=== PATIENT | male | born 1970 | race Caucasian/White ===

== ENCOUNTER → 2021-12-27 06:57 | Outpatient (CLI) | payer BC, SELFPAY ==
--- NOTE | ~2021-12-27 | US_ITS ---
EXAMINATION: US carotid duplex BI DATE: 12/27/2021 11:30 INDICATION: Carotid atherosclerosis TECHNIQUE: Grayscale, color Doppler, and pulsed Doppler images of the cervical carotid arteries were obtained. The degree of vessel stenosis is placed in one of the following categories: normal, <50%, 5 0-69%, >=70% but less than near-occlusion, near-occlusion, or total occlusion. Note that percent sten osis relative to normal distal artery lumen diameter is indirectly measured from velocity measurement s as described by Shant, et al. Radiology 2003; 229:340-346. COMPARISON: None. FINDINGS: RIGHT: The right common carotid artery (CCA) peak systolic velocity (PSV) is 81 cm/s. The right internal car otid artery (ICA) PSV is 74 cm/s. The right ICA end-diastolic velocity (EDV) is 33 cm/s. The right IC A/CCA PSV ratio is 0.9. Grayscale and color Doppler images yield an estimate of <50% diameter reducti on from plaque in the ICA. The external carotid artery (ECA) PSV is 70 cm/s. There is antegrade flow in the right vertebral artery. LEFT: The left CCA PSV is 78 cm/s. The left ICA PSV is 91 cm/s. The left ICA EDV is 41 cm/s. The left ICA/C CA PSV ratio is 1.2. Grayscale and color Doppler images yield an estimate of <50% diameter reduction from plaque in the ICA. The ECA PSV is 73 cm/s. There is antegrade flow in the left vertebral artery. IMPRESSION: 1. <50% stenosis in the right internal carotid artery. 2. <50% stenosis in the left internal carotid artery. Reviewed, dictated and finalized at location A.
--- NOTE | ~2021-12-27 | MR_ITS ---
EXAMINATION: MR brain/brain stem wo tessy EXAM DATE: 12/27/2021 07:52 INDICATION: Dizziness, headache, memory loss TECHNIQUE: Magnetic resonance imaging (MRI) of the brain/brain stem obtained without contrast. Linda al T1, axial diffusion, gradient echo (T2*), T1, T2, FLAIR sequences obtained. There is no prior st udy for comparison. FINDINGS: There are no areas of restricted diffusion to suggest acute infarction. There is no acute hemorrhage seen on the T2*, a hemosiderin sensitive sequence. No intraparenchymal brain mass. The ve ntricles are normal in size. There are no extra-axial collections. Flow voids are seen in the cereb ral arteries on the T2-weighted sequences consistent with their expected patency. The orbits are unr emarkable. Soft tissue is unremarkable. IMPRESSION: 1. Unremarkable brain MRI examination. Reviewed, dictated and finalized at location B.
--- NOTE | ~2021-12-27 | MR_ITS ---
EXAMINATION: MR cervical spine wo con EXAM DATE: 12/27/2021 07:52 INDICATION: Severe neck pain. TECHNIQUE: Multi-sequential, multiplanar MR images of the cervical spine were obtained without contra st. Axial T2, axial T2 MERGE sequence. Sagittal T1, T2, T2 fat saturation images also obtained. Th ere is no prior study for comparison. FINDINGS: There is mild disc disease C4-7. The spinal cord signal intensity and intrinsic morphology is normal. Cervicomedullary junction is normal in appearance. The vertebral bodies are aligned in th e AP dimension. There are no suspicious marrow signal abnormalities. Paraspinal soft tissue is unrema rkable. Level by level evaluation: C2-C3: Disc does not extend beyond the endplate margin. Uncovertebral joint arthropathy: Minimal left. Facet joint arthropathy: Minimal bilateral. Neural foraminal stenosis: No stenosis. Central canal stenosis: No stenosis. C3-C4: Disc does not extend beyond the endplate margin. Uncovertebral joint arthropathy: Minimal bilateral. Facet joint arthropathy: Minimal bilateral. Neural foraminal stenosis: No stenosis. Central canal stenosis: No stenosis. C4-C5: There is a minimal diffuse disc bulge. Uncovertebral joint arthropathy: Mild. Facet joint arthropathy: Mild bilateral. Neural foraminal stenosis: No stenosis. Central canal stenosis: No stenosis. C5-C6: There is a mild diffuse disc bulge asymmetric to the right. Uncovertebral joint arthropathy: Moderate to severe right, mild left. Facet joint arthropathy: Mild bilateral. Neural foraminal stenosis: Moderate to severe right, mild left. Central canal stenosis: Mild. C6-C7: Disc does not extend beyond the endplate margin. Uncovertebral joint arthropathy: Mild bilateral. Facet joint arthropathy: Mild bilateral. Neural foraminal stenosis: Mild. Central canal stenosis: No stenosis. C7-T1: Disc does not extend beyond the endplate margin. Uncovertebral joint arthropathy: Mild bilateral. Facet joint arthropathy: Mild bilateral. Neural foraminal stenosis: Mild right. Central canal stenosis: No stenosis. IMPRESSION: 1. C5-6 moderate to severe right neural foraminal stenosis. 2. Otherwise relatively mild cervical spondylosis. Reviewed, dictated and finalized at location B.
== END ==
PROVIDERS: PCP Internal Medicine; Visit Provider Internal Medicine
DX: R51.9 Headache, unspecified (principal); R42 Dizziness and giddiness; I65.23 Occlusion and stenosis of bilateral carotid arteries; M47.892 Other spondylosis, cervical region
CPT/HCPCS: 70551; 72141; 93880

== ENCOUNTER 2022-04-22 08:59 | Outpatient (CLI) | payer BC, SELFPAY ==
--- NOTE | 2022-04-22 09:30 | ECG_ITS ---
Measurements Intervals [place] Rate: 71 P: 23 MS: 142 QRS: -12 QRSD: 81 T: 7 QT: 339 QTc: 370 Interpretive Statements SINUS RHYTHM DELAYED PRECORDIAL R/S TRANSITION INFERIOR INFARCT, AGE INDETERMINATE BASELINE ARTIFACT- I, III, AVR, AVL, AVF, V2 ABNORMAL ECG Electronically Signed On 04-22-2022 10:06:33 CDT by Petar Black D.O.
[2022-04-22 09:59] LABS: Anion Gap 7 mmol/L (8-16); Blood Urea Nitrogen 12 mg/dL (9-20); Calcium 9.5 mg/dL (8.4-10.2); Carbon Dioxide 32 mmol/L (22-30); Chloride 102 mmol/L (98-107); Estimated Glomerular Filt Rate > 60; Glucose 163 mg/dL (65-110); Potassium 4.5 mmol/L (3.4-5.0); Sodium 141 mmol/L (137-145)
== END 2022-04-22 09:00 | disposition home or self-care (01) ==
LOC: ANHSURGERY 09:05
PROVIDERS: Anesthesiology; PCP Physician Assistant Medical; Visit Provider Urology
DX: E78.5 Hyperlipidemia, unspecified (principal); E11.9 Type 2 diabetes mellitus without complications; Z01.818 Encounter for other preprocedural examination; R94.31 Abnormal electrocardiogram [ECG] [EKG]
CPT/HCPCS: 36415; 80048; 93005

== ENCOUNTER 2022-04-24 03:08 | Day surgery (SDC) | payer BC, SELFPAY ==
[2022-04-16 08:50] VITALS: BMI 31.6
--- NOTE | 2022-04-16 08:51 | PC.NURSE ---
Report to the Outpatient Waiting Room, entrance under the green pavilion located off [facility], at time _0830_ on date _[id number]_. OR Time: _1030_. - You and your visitor will be asked a series of questions to screen for COVID 19 for your protection. - Only one visitor is allowed at this time. - The patient visitor is requested to leave or wait in car when not with patient. - A mask is required within the hospital. Patients may have clear liquids (water, carbonated beverages, clear teas, apple juice) until 3 hours prior to surgery with a maximum of 20 ounces. - No food from midnight until time of surgery Take the following medications with a SIP of water the morning of surgery: ___Levothyroxine Medications to discontinue per physician ____Multivitamin and fish oil Date to take last anpm___[id number] Please no make-up, nail macanese, hairspray, perfume, deodorant, or body powder the day of surgery. No jewelry (including any body piercings) or valuables the day of surgery, leave them at home. Please take a shower or bath the night before, or the morning of, surgery with an antibacterial soap. Wear comfortable, loose fitting clothing. - Jewelry must be removed prior to entering the operating room. Rings and piercings that are not removed may be cut off. - The hospital will not accept responsibility for valuables. - Please leave all valuables, including medications, at home the day of surgery. If you are going home after surgery, a licensed wood pile driver operator must drive you home. - NO public transportation without another adult. - We recommend that an adult stay with you for 24 hours following discharge. - We also recommend that you do not drive, make important decision, drink alcoholic beverages, or take any drugs that were not prescribed by your health care provider for at least 24 hours after your discharge time. Follow any additional instructions given to you from your surgeon. If you or anyone in your household have experienced Covid symptoms in the past week, please notify your surgeon or the nurse liaison at the phone number below for possible testing. Telephone instructions given to _Patient___and asked if any additional questions and then verbalized understanding. Patient advised to call surgeon office or pre surgery nurse liaison [phone] if any additional questions.
--- NOTE | 2022-04-23 15:37 | WPDANESEPPF ---
Anes - Initial Pre Proc Eval Procedure: Operation Date: 04/24/22 10:30 Proposed Procedures p Cystoscopy, Left Ureteroscopy, Left Retrograde Pyelogram, Left Stone Extraction, Possible Left Stent Placement, Possible Holmium Laser Lithotripsy - Winston Marroquin MD Date/Time: 04/23/22 15:37 Surgeon: Winston Marroquin MD Pre Op Diagnosis: left kidney calculus Patient Data Age: 52 Gender: M Height: 1.78 m Weight: 100 kg Allergies Allergy/AdvReac Type Severity Reaction Status Date / Time No Known Allergies Allergy Verified 04/24/22 08:27 Home Medications Medication Instructions Recorded Confirmed Type allopurinol 100 mg tablet 100 mg PO DAILY 04/04/22 04/16/22 History fenofibrate 50 mg capsule 50 mg PO DAILY 04/04/22 04/16/22 History levothyroxine 25 mcg capsule 25 mcg PO DAILY 04/04/22 04/16/22 History metformin 500 mg tablet 500 mg PO DAILY 04/04/22 04/16/22 History simvastatin 20 mg tablet 20 mg PO DAILY 04/04/22 04/16/22 History multivitamin 1 tablet PO DAILY 04/16/22 04/16/22 History omega-3 fatty acids 1,000 mg PO DAILY 04/16/22 04/16/22 History semaglutide 1 mg/dose (4 mg/3 mL) 1 mg subcut WEEKLY 04/16/22 04/16/22 History subcutaneous pen injector (Ozempic) Patient hx anesthesia problems: none Family hx anesthesia problems: none Results Review: All pre-operative results and documents have been reviewed as part of the pre-operative evaluation. [facility] Past Medical History Medical History Diabetes Hypercholesterolemia Hypertension Hypothyroidism Obesity Smoker Surgical History Surgical History H/O shoulder surgery Family History Family History Other Diabetes mellitus Family history of malignant neoplasm Social History Social History Smoking status: Light tobacco smoker Alcohol intake: current Drinks per week: 2 Living arrangements: with family Spiritual care concerns: No Anes - Eval Final PreProcedure Day of Procedure 07/27/22 15:37 Patient weight: obese Heart: regular rate and rhythm Lungs: clear to auscultation and normal air movement Airway: Mallampati scale class II Neurological: alert and oriented Last oral intake: >/= 8 hours ASA classification: III Emergent: no Anesthetic plan: proceed Anesthesia type and monitoring: general LMA Results Review: All pre-operative results and documents have been reviewed as part of the pre-operative evaluation. Informed Consent: The patient's anesthetic plan and its attendant risks and benefits were discussed with the patient/family/POA. Questions were solicited and answers provided to the satisfaction of the patient/family/POA.
--- NOTE | ~2022-04-24 | XR_ITS ---
EXAMINATION: XR retrograde pyelo w/stent LT DATE: 04/24/2022 10:49 INDICATION: Left internal ureteral stent placement TECHNIQUE: Fluoroscopic images from a left internal ureteral stent placement are submitted for review . 156 seconds of fluoroscopy time. 53 images. FINDINGS: There is a left double-J internal ureteral stent projecting in expected position, with proximal [place] loop at the level of the renal pelvis and distal loop in the pelvis within the bladder lumen. IMPRESSION: 1. Left internal ureteral stent placement. Please refer to real-time procedural findings for detail s. Reviewed, dictated and finalized at location A. IMPRESSION: 1. Left internal ureteral stent placement. Please refer to real-time procedur al findings for details.
--- NOTE | 2022-04-24 06:25 | WPDHPUPDATE1 ---
History and Physical Update Update Date/Time: 04/24/22 06:25 History and Physical has been reviewed, including an updated exam of the patient. There are NO changes in the patient's condition. Risks, benefits, and alternatives have been discussed and questions answered. Patient agrees to proceed with procedure.
[2022-04-24] MEDS: LACTATED RINGERS 1,000 ML 30 ML IV CONT ×2 (08:45→10:52)
[2022-04-24 08:47] LABS: Glucose Point of Care 191 mg/dl (65-105)
[2022-04-24 09:01] VITALS: BP 165/92; PULSE 66; RESP 16; TEMP 36.4; O2SAT 97
[2022-04-24] MEDS: ceFAZolin 2 GM/D5W 50 ML 2 GM/50 ML BAG IVPB (09:47)
[2022-04-24] MEDS: LIDOCAINE HCL 2% GEL UROJET 10 ML PKG MUCOUS MEM (10:00)
--- NOTE | 2022-04-24 10:45 | W.PM.PROC2 ---
Procedure Note - Detailed Date of Procedure 04/24/22 Pre-op Diagnosis Left ureteral calculi x2 Post-op Diagnosis Same Procedure Performed cystoscopy, left ureteroscopy with laser lithotripsy and stone extraction, left retrograde pyelography and left ureteral stent placement Surgeon Winston Marroquin MD Anesthesia General Description of Procedure patient is brought to the operative suite where he was prepped draped in routine sterile fashion while in dorsal lithotomy position after the uneventful induction of a general LMA anesthetic. Cystoscopy is undertaken with a 19 F rigid cystoscope. He has no urethral strictures and only minimal prostatic hyperplasia. There was no intravesical foreign body or neoplasm. His a single orthotopic ureteral orifice bilaterally. A 0.035 in glidewire was advanced into the left mid ureter. I could get the wire past the 1 cm mid ureteral stone but could not get it past the proximal ureteral stone. I dilated the distal ureter with an 8 F 10 F dilator and performed flexible ureteroscopy with a 7.5F flexible ureteral scope. Because of supplies chain shortages there were no ureteral access sheath available. Using a cyst 273 micron holmium laser fiber I fractured this more distal, large ( approximately 1 cm) stone using a dusting mode. Both fragments washed out of the ureter with irrigation. I was unable to access the more proximal, proximally 1 cm stone. Using the same holmium fiber I fractured that stone the multiple small pieces. I removed the flexible ureteral scope. I was able to advance a short tapered semi-rigid ureteral scope into the more proximal ureter. Any sizable stone fragments were removed. I then placed a 4.8 F variable length stent after performing a retrograde pyelogram to ensure proper positioning in the renal pelvis and bladder. Patient tolerated this procedure well was taken recovery in good condition. Drains No Packing No Pathology None sent Complications No immediate complications Condition Stable
[2022-04-24 10:52] VITALS: BP 145/87; PULSE 82; RESP 12; TEMP 36.7; O2SAT 100
[2022-04-24 11:07] VITALS: BP 159/90; PULSE 78; RESP 15; O2SAT 96
[2022-04-24 11:15] LABS: Glucose Point of Care 174 mg/dl (65-105)
[2022-04-24 11:22] VITALS: BP 156/89; PULSE 75; RESP 13; O2SAT 97
[2022-04-24 11:31] VITALS: BP 181/112; PULSE 81; RESP 16
[2022-04-24 12:00] VITALS: BP 177/110; PULSE 68; RESP 16
== END 2022-04-24 12:15 | disposition home or self-care (01) ==
PROVIDERS: PCP Physician Assistant Medical; Visit Provider Urology
PROC: (CPT 52352; principal; 2022-04-24 10:30)
DX: N20.1 Calculus of ureter (principal); I10 Essential (primary) hypertension; E11.9 Type 2 diabetes mellitus without complications; E78.00 Pure hypercholesterolemia, unspecified; E03.9 Hypothyroidism, unspecified; E66.9 Obesity, unspecified; Z68.32 Body mass index [BMI] 32.0-32.9, adult; F17.200 Nicotine dependence, unspecified, uncomplicated; Z79.84 Long term (current) use of oral hypoglycemic drugs; Z79.899 Other long term (current) drug therapy
CPT/HCPCS: 52356; 36415; 74420; 80048; 82365; 82948; 88300; 93005; A9270; C1758; C1769; C2617; J0690; J1100; J2250; J2405; J2704; J3010; J7120

== ENCOUNTER 2022-05-06 08:43 | Outpatient (CLI) | payer BC, SELFPAY ==
--- NOTE | ~2022-05-06 | XR_ITS ---
XR abdomen/kub 1V 05/06/2022 08:57 Indication: Renal stones Procedure: KUB Comparison: No prior studies for comparison. Findings: Internal ureteral stent in expected position. Proximal left ureteral stones. There is a sto ne in the lower pole of the left kidney. Gas pattern nonobstructive. No acute osseous abnormality. Impression: 1: Left renal and proximal ureteral stones. Reviewed, dictated and finalized at location A. Impression: 1: Left renal and proximal ureteral stones.
== END 2022-05-06 08:44 | disposition home or self-care (01) ==
LOC: ANHIMG 08:45
PROVIDERS: PCP Physician Assistant Medical; Visit Provider Urology
DX: N20.2 Calculus of kidney with calculus of ureter (principal)
CPT/HCPCS: 74018

== ENCOUNTER 2023-01-15 15:20 | Outpatient (CLI) | payer BC, SELFPAY ==
--- NOTE | ~2023-01-15 | XR_ITS ---
XR abdomen/kub 1V 01/15/2023 15:36 Indication: Right ureteral stone Procedure: KUB Comparison: 05/06/2022 Findings: There are bilateral renal stones. No definite stones are identified in the expected course of the ureters. Bowel gas pattern is nonobstructive. There are calcified granulomas in the lower lung s. There are calcified granulomas of the spleen. Impression: 1: Bilateral nephrolithiasis. Reviewed, dictated and finalized at location A. Impression: 1: Bilateral nephrolithiasis.
== END 2023-01-15 15:21 | disposition home or self-care (01) ==
PROVIDERS: PCP Physician Assistant Medical; Visit Provider Urology
DX: N20.0 Calculus of kidney (principal)
CPT/HCPCS: 74018

== ENCOUNTER 2023-01-22 13:25 | Outpatient (CLI) | payer BC, SELFPAY ==
--- NOTE | ~2023-01-22 | CT_ITS ---
EXAMINATION: CT abdomen pelvis wo con DATE: 01/22/2023 13:51 INDICATION: Left ureteral stone TECHNIQUE: Computed tomography (CT) of the abdomen and pelvis was performed without intravenous contr ast. The dose-length product (DLP) was 436.76 mGy-cm. Automated exposure control and iterative recons truction technique were employed. COMPARISON: None FINDINGS: Calcified pulmonary nodules and calcified bilateral hilar and mediastinal lymph nodes are c onsistent with old granulomatous disease. The heart size is normal. Punctate calcifications in an oth erwise normal spleen likely represent healed granulomatous disease. The liver, pancreas, gallbladder, and adrenal glands are normal. There is a 4 mm nonobstructing stone of the right kidney. There is a 4 mm nonobstructing stone of the left kidney lower pole. There is an 8 mm x 4 mm stone of the distal left ureter. No hydronephrosis or hydroureter. Cysts of the kidneys measure up to 3.2 cm on the right . No pathologically enlarged abdominal or pelvic lymph nodes are identified. No free intraperitoneal gas or evidence of bowel obstruction. There are fat-containing umbilical and inguinal hernias. IMPRESSION: 1. 8 mm x 4 mm stone of the distal left ureter. 2. Bilateral nephrolithiasis. Reviewed, dictated and finalized at location L.
== END 2023-01-22 13:26 | disposition home or self-care (01) ==
PROVIDERS: Visit Provider Urology
DX: N20.2 Calculus of kidney with calculus of ureter (principal)
CPT/HCPCS: 74176

== ENCOUNTER 2023-02-12 00:52 | Day surgery (SDC) | payer BC, SELFPAY ==
[2023-02-03 15:19] VITALS: BMI 32.2
--- NOTE | 2023-02-03 15:26 | PC.NURSE ---
Report to the Outpatient Waiting Room, entrance under the green pavilion located off [facility], at time 0600_ on date 02/02/23. Planned Procedure Time: ___729__. Time changes happen often and if your time is changed the preop area will call you the afternoon before. - You and your visitor will be asked to self-screen and do not enter if you have any COVID symptoms. - A mask is optional within the hospital at this time. Patients may have clear liquids (water, carbonated beverages, clear teas, apple juice) until 3 hours prior to surgery with a maximum of 20 ounces. - No food from midnight until time of surgery - Infants may have breast milk until 4 hours before surgery, formula 6 hours prior to surgery. - Children will be allowed to drink immediately following surgery. If applicable, please bring a bottle or sippy cup to assist with drinking. Juice, water, soda, and popsicles are readily available. For infants on formula, please bring formula the day of surgery. Pacifiers are allowed. Take the following medications with a SIP of water the morning of surgery: LEVOTHYROXINE, PAIN, NAUSEA AND ANXIETY MEDICATION IF NEEDED DO NOT STOP ANY OF YOUR OTHER PRESCRIPTION MEDICATIONS PRIOR TO SURGERY ?EXCEPT THE FOLLOWING Medications to discontinue per physician VITAMINS AND SUPPLIMENTS Date to take last dose____STOPPED 01/30/23___ Please no make-up, nail occitan, hairspray, perfume, deodorant, or body powder the day of surgery. No jewelry (including any body piercings) or valuables the day of surgery, leave them at home. Please take a shower or bath the night before, or the morning of, surgery with an antibacterial soap. Wear comfortable, loose fitting clothing. Children are encouraged to wear pajamas. - Jewelry must be removed prior to entering the operating room. Rings and piercings that are not removed may be cut off. - The hospital will not accept responsibility for valuables. - Please leave all valuables, including medications, at home the day of surgery. If you are going home after surgery, a licensed otr truck driver must drive you home. - NO public transportation without another adult if you receive anesthesia. - We recommend that an adult stay with you for 24 hours following discharge. - We also recommend that you do not drive, make important decision, drink alcoholic beverages, or take any drugs that were not prescribed by your health care provider for at least 24 hours after your discharge time. For Pediatric surgeries, we recommend two adults accompany the child home. Follow any additional instructions given to you from your surgeon. If you or anyone in your household have experienced Covid symptoms in the past week, please notify your surgeon or the nurse liaison at the phone number below for possible testing. Telephone instructions given to ___PATIENT_and asked if any additional questions and then verbalized understanding. Patient advised to call surgeon office or pre surgery nurse liaison [phone] if any additional questions.
--- NOTE | 2023-02-11 13:55 | WPDANESEPPF ---
Anes - Initial Pre Proc Eval Procedure: Operation Date: 02/12/23 07:30 Proposed Procedures p Cystoscopy, Left Ureteroscopy, Left Stone Extraction, Left Retrograde Pyelogram, Left Stent Placement, Possible Holmium Laser Lithotripsy - Winston Marroquin MD Date/Time: 02/11/23 13:55 Surgeon: Winston Marroquin MD Pre Op Diagnosis: Lt Ureteral Kidney Stone Patient Data Age: 52 Gender: M Height: 1.78 m Weight: 102 kg Allergies Allergy/AdvReac Type Severity Reaction Status Date / Time No Known Allergies Allergy Verified 02/12/23 06:20 Home Medications Medication Instructions Recorded Confirmed Type multivitamin 1 tablet PO DAILY 04/16/22 02/12/23 History omega-3 fatty acids 1,000 mg PO DAILY 04/16/22 02/12/23 History glimepiride 1 mg tablet 1 mg PO DAILY #90 tabs 07/04/22 02/12/23 Rx levothyroxine 100 mcg tablet 100 mcg PO DAILY #90 tabs 07/04/22 02/12/23 Rx simvastatin 10 mg tablet 10 mg PO QHS #90 tabs 07/04/22 02/12/23 Rx alprazolam 0.5 mg tablet See Rx Instructions PO TID PRN 07/09/22 02/03/23 Rx anxiety #45 tabs allopurinol 300 mg tablet See Rx Instructions .Route 01/01/23 02/12/23 Rx .COMPLEX #90 tabs losartan 25 mg tablet See Rx Instructions .Route 01/01/23 02/03/23 Rx .COMPLEX #90 tabs metformin 500 mg tablet,extended 500 mg PO BID #90 tabs 01/01/23 02/12/23 Rx release 24 hr semaglutide 1 mg/dose (4 mg/3 mL) 1 mg (0.75 mL) subcut WEEKLY #3 mL 01/01/23 02/03/23 Rx subcutaneous pen injector hydrocodone 5 mg-acetaminophen 325 1 tablet PO PRN PRN Nausea And 02/03/23 02/03/23 History mg tablet Vomiting ondansetron HCl 4 mg tablet 4 mg PO TID PRN Nausea 02/03/23 02/03/23 History Patient hx anesthesia problems: none Family hx anesthesia problems: none Results Review: All pre-operative results and documents have been reviewed as part of the pre-operative evaluation. PMFSH Past Medical History Medical History Anxiety Diabetes Hypercholesterolemia Hypertension Hypothyroidism Obesity Smoker Surgical History Surgical History H/O shoulder surgery Family History Family History Other Diabetes mellitus Family history of malignant neoplasm Social History Social History Smoking status: Never smoker Alcohol intake: current Drinks per week: 1 Substance use: never Substance use type: marijuana Other substance usage details: DURING TEEN YEARS Living arrangements: with family Occupation/Education: occupation Gender identity (if verbalized by the patient): Male Spiritual care concerns: No Anes - Eval Final PreProcedure Day of Procedure 02/11/23 13:55 Patient weight: obese Heart: regular rate and rhythm Lungs: clear to auscultation and normal air movement Airway: Mallampati scale class II Neurological: alert and oriented Last oral intake: >/= 8 hours ASA classification: III Emergent: no Anesthetic plan: proceed Anesthesia type and monitoring: general LMA Results Review: All pre-operative results and documents have been reviewed as part of the pre-operative evaluation. Informed Consent: The patient's anesthetic plan and its attendant risks and benefits were discussed with the patient/family/POA. Questions were solicited and answers provided to the satisfaction of the patient/family/POA.
[2023-02-12] VITALS (7 sets, daily range): BP systolic 102–155; BP diastolic 62–88; PULSE 70–86; RESP 16–20; TEMP 36.3–36.8; O2SAT 96–100; BMI 32.5
--- NOTE | ~2023-02-12 | XR_ITS ---
EXAMINATION: XR fluoroscopy no charge DATE: 02/12/2023 07:54 INDICATION: Left ureteral stone. TECHNIQUE: 2 intraoperative spot fluoroscopic views of the pelvis were obtained. I was not present. F luoroscopy exposure time was 14 seconds. COMPARISON: CT abdomen and pelvis 01/22/2023 FINDINGS: Images demonstrate a wire in the left ureter. There is no visible urolithiasis. IMPRESSION: 1. Wire in the left ureter. Reviewed, dictated and finalized at location A. IMPRESSION: 1. Wire in the left ureter.
[2023-02-12] MEDS: LACTATED RINGERS 1,000 ML 30 ML IV CONT (06:30)
--- NOTE | 2023-02-12 06:31 | WPDHPUPDATE1 ---
History and Physical Update Update Date/Time: 02/12/23 06:31 History and Physical has been reviewed, including an updated exam of the patient. There are NO changes in the patient's condition. Risks, benefits, and alternatives have been discussed and questions answered. Patient agrees to proceed with procedure.
[2023-02-12 06:43] LABS: Glucose Point of Care 130 mg/dl (65-105)
[2023-02-12] MEDS: ceFAZolin 2 GM/D5W 50 ML 2 GM/50 ML BAG IVPB (07:22)
[2023-02-12] MEDS: LIDOCAINE HCL 2% GEL UROJET 10 ML PKG MUCOUS MEM (07:33)
[2023-02-12] MEDS: KETOROLAC 30 MG/ML VIAL (*BKC) IV PUSH (07:45)
--- NOTE | 2023-02-12 07:53 | W.PM.PROC2 ---
Procedure Note - Detailed Date of Procedure 02/12/23 Pre-op Diagnosis Lt Ureteral Stone Post-op Diagnosis Same Procedure Performed Cystoscopy, left ureteroscopy with laser lithotripsy, stone extraction Surgeon Winston Marroquin MD Anesthesia General Description of Procedure patient is brought to the operative suite where he has prepped draped in routine sterile fashion while in dorsal lithotomy position after the uneventful induction of a general LMA anesthetic. Cystoscopy is undertaken with a 19 F rigid cystoscope. There was no urethral stricture disease and minimal lateral lobe hyperplasia of the prostate without a median lobe. Bladder was endoscopically normal without foreign body or neoplasm. Bladder mucosa has a normal appearance. He has a single orthotopic ureteral orifice. A 0.035 in glidewire was advanced in the left renal pelvis and the distal ureter was dilated with an 8 F 10 F dilator. Ureteroscopy was undertaken with a short tapered semi-rigid ureteral scope. His 8 x 4 mm left distal ureteral calculus is identified. Using a 200 micron holmium laser fiber at is dusted and all tiny pieces were extracted with a 1.9 F escape disposable stone basket. Because of the ease of this procedure and pace and patient's intolerance of stents in the past we opted not to place a stent. Scopes and wires removed and he was taken recovery room good condition. Drains No Pathology Yes Complications No immediate complications Condition Stable
[2023-02-12 08:54] LABS: Glucose Point of Care 139 mg/dl (65-105)
== END 2023-02-12 09:25 | disposition home or self-care (01) ==
PROVIDERS: Visit Provider Urology
PROC: (CPT 52352; principal; 2023-02-12 07:30)
DX: N20.1 Calculus of ureter (principal)
CPT/HCPCS: 52353; 82365; 82948; 88300; 99199; C1769; J0690; J1100; J1885; J2250; J2405; J2704; J3010; J7120

== ENCOUNTER 2024-01-13 14:46 | Outpatient (CLI) | payer BC, SELFPAY ==
--- NOTE | ~2024-01-13 | XR_ITS ---
EXAMINATION: XR abdomen/kub 1V DATE: 01/13/2024 15:08 INDICATION: Right flank pain. Nausea. TECHNIQUE: A supine view of the abdomen on 2 radiographs was obtained. COMPARISON: None. FINDINGS: There is an 8 mm stone in right kidney. There is a 2 mm stone in left kidney. There are no dilated loops of bowel. Calcifications in left pelvis are likely phleboliths. Calcifications in the s pleen are consistent with old granulomatous disease. IMPRESSION: 1. Bilateral kidney stones. Reviewed, dictated and finalized at location E. IMPRESSION: 1. Bilateral kidney stones.
== END 2024-01-13 14:47 | disposition home or self-care (01) ==
LOC: ANHIMG 14:47
PROVIDERS: Visit Provider Urology
DX: N20.1 Calculus of ureter (principal)
CPT/HCPCS: 74018

== ENCOUNTER 2024-03-21 10:13 | Outpatient (CLI) | payer BC, SELFPAY ==
--- NOTE | 2024-03-21 10:29 | ECG_ITS ---
Test Date: 2024-03-21 10:45:19 Measurements Intervals [place] Rate: 77 P: 17 [place]: 128 QRS: -17 QRSD: 88 T: 18 QT: 354 QTc: 402 Interpretive Statements SINUS RHYTHM NONSPECIFIC T-WAVE ABNORMALITY POOR R-WAVE PROGRESSION ABNORMAL ECG WARNING: DATA QUALITY MAY AFFECT INTERPRETATION No previous ECG available for comparison Electronically Signed On 03-21-2024 15:55:24 CDT by Mg Yanez M.D.
[2024-03-21 11:21] LABS: Anion Gap 9 mmol/L (4-12); Blood Urea Nitrogen 20 mg/dL (9-20); Calcium 10.6 mg/dL (8.4-10.2); Carbon Dioxide 27 mmol/L (22-30); Chloride 101 mmol/L (98-107); Estimated Glomerular Filt Rate > 60; Glucose 175 mg/dL (65-110); INR 0.9; Potassium 4.5 mmol/L (3.4-5.0); Prothrombin Time 12.4 Seconds (11.1-14.7); Sodium 137 mmol/L (137-145)
[2024-03-21 11:22] LABS: Partial Thromboplastin Time 26.4 Seconds (22.3-36.8)
== END 2024-03-21 10:14 | disposition home or self-care (01) ==
PROVIDERS: Anesthesiology; Visit Provider Urology
DX: N20.0 Calculus of kidney (principal); E11.9 Type 2 diabetes mellitus without complications; Z01.818 Encounter for other preprocedural examination
CPT/HCPCS: 36415; 80048; 85610; 85730; 87086; 93005

== ENCOUNTER 2024-03-25 02:03 | Day surgery (SDC) | payer BC, SELFPAY ==
[2024-03-18 10:59] VITALS: BMI 33.0
--- NOTE | 2024-03-18 11:00 | PC.NURSE ---
Report to the Outpatient Waiting Room, entrance under the green pavilion located off [facility], at time _1030_ on date _[id number]_. Planned Procedure Time: _1230_. Time changes happen often and if your time is changed the preop area will call you the afternoon before. - You and your visitor will be asked to self-screen and do not enter if you have any COVID symptoms. - A mask is optional within the hospital at this time. Patients may have clear liquids (water, carbonated beverages, clear teas, apple juice) until 3 hours prior to surgery with a maximum of 20 ounces. - No food from midnight until time of surgery Take the following medications with a SIP of water the morning of surgery: _Levothyroxine and if needed Alprazolam DO NOT STOP ANY OF YOUR OTHER PRESCRIPTION MEDICATIONS PRIOR TO SURGERY ?EXCEPT THE FOLLOWING Medications to discontinue per physician ____Vitamins and fish oil Date to take last kefo__[id number] Please no make-up, nail mohawk, hairspray, perfume, deodorant, or body powder the day of surgery. No jewelry (including any body piercings) or valuables the day of surgery, leave them at home. Please take a shower or bath the night before, or the morning of, surgery with an antibacterial soap. Wear comfortable, loose fitting clothing. - Jewelry must be removed prior to entering the operating room. Rings and piercings that are not removed may be cut off. - The hospital will not accept responsibility for valuables. - Please leave all valuables, including medications, at home the day of surgery. If you are going home after surgery, a licensed front end loader driver must drive you home. - NO public transportation without another adult if you receive anesthesia. - We recommend that an adult stay with you for 24 hours following discharge. - We also recommend that you do not drive, make important decision, drink alcoholic beverages, or take any drugs that were not prescribed by your health care provider for at least 24 hours after your discharge time. Follow any additional instructions given to you from your surgeon. If you or anyone in your household have experienced Covid symptoms in the past week, please notify your surgeon or the nurse liaison at the phone number below for possible testing. Telephone instructions given to Dan_and asked if any additional questions and then verbalized understanding. Patient advised to call surgeon office or pre surgery nurse liaison [phone] if any additional questions.
--- NOTE | ~2024-03-25 | XR_ITS ---
EXAMINATION: XR abdomen/kub 1V DATE: 03/25/2024 09:55 INDICATION: Kidney stone. TECHNIQUE: A supine view of the abdomen on 2 radiographs was obtained. COMPARISON: Abdomen radiographs 01/13/2024, CT abdomen and pelvis 01/22/2023 FINDINGS: There is an 8 mm stone in right kidney. There is a 3 mm stone in left kidney. There are phl eboliths in the pelvis. IMPRESSION: 1. Bilateral kidney stones. Reviewed, dictated and finalized at location A. IMPRESSION: 1. Bilateral kidney stones.
--- NOTE | 2024-03-25 06:17 | WPDHPUPDATE1 ---
History and Physical Update Update Date/Time: 03/25/24 06:17 History and Physical has been reviewed, including an updated exam of the patient. There are NO changes in the patient's condition. Risks, benefits, and alternatives have been discussed and questions answered. Patient agrees to proceed with procedure.
[2024-03-25 10:00] VITALS: BP 112/85; PULSE 100; RESP 18; TEMP 36.9; O2SAT 97
[2024-03-25] MEDS: LACTATED RINGERS 1,000 ML 30 ML IV CONT ×2 (10:30→12:44)
[2024-03-25 10:39] LABS: Glucose Point of Care 156 mg/dl (65-105)
--- NOTE | 2024-03-25 11:47 | WPDANESEPPF ---
Anes - Initial Pre Proc Eval Procedure: Operation Date: 03/25/24 12:00 Proposed Procedures p Right Extracorporeal Shock Wave Lithotripsy - Winston Marroquin MD Date/Time: 03/25/24 11:47 Surgeon: Winston Marroquin MD Pre Op Diagnosis: bilateral kidney stones Patient Data Age: 53 Gender: M Height: 1.78 m Weight: 101.2 kg Last Vital Signs Temp 36.9 C 03/25/24 10:00 Pulse 100 03/25/24 10:00 Resp 18 03/25/24 10:00 BP 112/85 03/25/24 10:00 Pulse Ox 97 03/25/24 10:00 O2 Del Method Room Air 03/25/24 10:00 Allergies Allergy/AdvReac Type Severity Reaction Status Date / Time No Known Allergies Allergy Verified 03/18/24 10:51 Home Medications Medication Instructions Recorded Confirmed Type multivitamin 1 tablet PO DAILY 04/16/22 03/25/24 History omega-3 fatty acids 1,000 mg PO DAILY 04/16/22 03/25/24 History levothyroxine 100 mcg tablet 100 mcg PO DAILY #90 tabs 07/04/22 03/25/24 Rx simvastatin 10 mg tablet 10 mg PO QHS #90 tabs 07/04/22 03/25/24 Rx allopurinol 300 mg tablet See Rx Instructions .Route 01/01/23 03/25/24 Rx .COMPLEX #90 tabs losartan 25 mg tablet See Rx Instructions .Route 01/01/23 03/25/24 Rx .COMPLEX #90 tabs metformin 500 mg tablet,extended 500 mg PO BID #90 tabs 01/01/23 03/25/24 Rx release 24 hr semaglutide 1 mg/dose (4 mg/3 mL) 1 mg (0.75 mL) subcut WEEKLY #3 mL 01/01/23 03/25/24 Rx subcutaneous pen injector alprazolam 0.5 mg tablet See Rx Instructions PO TID PRN 03/16/23 03/25/24 Rx anxiety #45 tabs Laboratory Tests 03/25/24 10:37 POC Capillary Glucose 156 H mg/dl (65-105) Patient hx anesthesia problems: none Family hx anesthesia problems: none Results Review: All pre-operative results and documents have been reviewed as part of the pre-operative evaluation. PMFSH Past Medical History Medical History Anxiety Diabetes Hypercholesterolemia Hypertension Hypothyroidism Obesity Smoker Surgical History Surgical History H/O shoulder surgery Family History Family History Other Diabetes mellitus Family history of malignant neoplasm Social History Social History Smoking status: Never smoker Alcohol intake: current Drinks per week: 2 Substance use: never Substance use type: marijuana Other substance usage details: DURING TEEN YEARS Living arrangements: with family Occupation/Education: occupation Gender identity (if verbalized by the patient): Male Spiritual care concerns: No Anes - Eval Final PreProcedure Day of Procedure 03/25/24 11:47 Patient weight: obese Heart: regular rate and rhythm Lungs: decreased breath sounds Airway: Mallampati scale class II Neurological: alert and oriented Last oral intake: >/= 8 hours ASA classification: III Emergent: no Anesthetic plan: proceed Anesthesia type and monitoring: general LMA and standard monitoring Results Review: All pre-operative results and documents have been reviewed as part of the pre-operative evaluation. Informed Consent: The patient's anesthetic plan and its attendant risks and benefits were discussed with the patient/family/POA. Questions were solicited and answers provided to the satisfaction of the patient/family/POA.
[2024-03-25] MEDS: ceFAZolin 2 GM/D5W 50 ML 2 GM/50 ML BAG IVPB (11:57)
--- NOTE | 2024-03-25 12:12 | W.PM.PROC2 ---
Procedure Note - Detailed Date of Procedure 03/25/24 Pre-op Diagnosis Right renal stone Post-op Diagnosis Same Procedure Performed Right ESWL Surgeon Winston Marroquin MD Anesthesia General Description of Procedure The patient was brought to the operative suite where he was placed in the supine position on the [place] lithotripsy table. The focal point of the lithotripter was placed at a 6mm right renal calculus. A total of 2500 shocks were delivered at a power setting of 4. There appeared to be good fragmentation of the stone. The patient tolerated the procedure well and was taken to the recovery room in good condition. Drains No Packing No Pathology None sent Complications No immediate complications Condition Stable
[2024-03-25 12:44] VITALS: BP 113/72; PULSE 85; RESP 14; TEMP 36.3; O2SAT 98
[2024-03-25 13:01] VITALS: BP 126/72; PULSE 81; RESP 16; O2SAT 98
[2024-03-25 13:16] VITALS: BP 115/75; PULSE 81; RESP 16; O2SAT 98
[2024-03-25 13:26] VITALS: BP 144/74; PULSE 87
[2024-03-25 13:50] VITALS: BP 140/72; PULSE 83
== END 2024-03-25 14:10 | disposition home or self-care (01) ==
PROVIDERS: Visit Provider Urology
PROC: (CPT 50590; principal; 2024-03-25 12:00)
DX: N20.0 Calculus of kidney (principal); I10 Essential (primary) hypertension; E78.00 Pure hypercholesterolemia, unspecified; E11.9 Type 2 diabetes mellitus without complications; F41.9 Anxiety disorder, unspecified; E03.9 Hypothyroidism, unspecified; F12.90 Cannabis use, unspecified, uncomplicated; E66.9 Obesity, unspecified; Z68.32 Body mass index [BMI] 32.0-32.9, adult; Z98.890 Other specified postprocedural states; Z79.891 Long term (current) use of opiate analgesic; Z79.85 Long-term (current) use of injectable non-insulin antidiabetic drugs; Z80.3 Family history of malignant neoplasm of breast
CPT/HCPCS: 50590; 36415; 74018; 80048; 82948; 85610; 85730; 87086; 93005; J0690; J1100; J2250; J2371; J2405; J2704; J7120

== ENCOUNTER 2024-04-12 11:08 | Outpatient (CLI) | payer BC, SELFPAY ==
--- NOTE | ~2024-04-12 | XR_ITS ---
XR abdomen/kub 1V Ordering provider: Winston Marroquin MD History: . N20.0 - Calculus of kidney, follow-up . Comparison: March 25, 2024 FINDINGS: BOWEL: Slightly thickened wall of the fundus of the stomach. Nonobstructive bowel gas pattern. ORGANOMEGALY: None. SIGNIFICANT PATHOLOGIC CALCIFICATIONS: Stone in the right kidney lower pole. Tiny stone in the left k idney lower pole. OTHER: No free air is seen under the diaphragm. Bilateral hip osteoarthritic changes. IMPRESSION: NO ACUTE ABDOMINAL FINDINGS. Bilateral renal stones. Reviewed, dictated and finalized at location A.
== END 2024-04-12 11:09 | disposition home or self-care (01) ==
PROVIDERS: Visit Provider Urology
DX: N20.0 Calculus of kidney (principal)
CPT/HCPCS: 74018